=== PATIENT | male | born 1950 | race Asian ===

== ENCOUNTER 2024-12-29 14:45 | Inpatient (IN) | payer OTHER ==
[~2024-12-29] VITALS: Ht 170.2 cm; Wt 78.8 kg
[2024-12-29] MEDS ORDERED: IOHEXOL 350 MG/ML 100 ML VIAL ONE (14:51)
[2024-12-29 15:01] LABS: PLATELET COUNT (AUTO) 102 K/uL (150-450); RED BLOOD CELL COUNT(AUTO) 3.18 MIL/uL (4.50-5.90); RED CELL DISTRIBUTION WIDTH 14.5 % (11.5-14.5); WHITE BLOOD COUNT (AUTO) 4.5 K/uL (4.5-11.0)
[2024-12-29 15:09] LABS: CALCIUM, TOTAL 8.2 mg/dL (8.8-10.5); CREATININE 1.29 mg/dL (0.60-1.30); GLOMERULAR FILTR. RATE CALC 54.0 mL/min (>60); GLUCOSE,RANDOM 111.0 mg/dL (70-110); SODIUM SERUM 139.0 mmol/L (136-145); UREA NITROGEN, BLOOD 12.0 mg/dL (7-18)
[2024-12-29 15:13] LABS: ASPARTATE AMINOTRANSFERASE 38.0 U/L (15-37); CHOL/HDL RATIO 2.6 (4.2-7.3); LDL CHOL (CALC.) 60.0 mg/dL (0-130); TOTAL PROTEIN, SERUM 6.6 g/dL (6.4-8.2)
[2024-12-29] MEDS: TENECTEPLASE PER STROKE PROTOCOL CLINICAL ONE (15:13)
[2024-12-29 15:15] LABS: TROPONIN I-HIGH SENSITIVITY 16 ng/L (<76)
[2024-12-29] MEDS ORDERED: TENECTEPLASE 50 MG/10 ML KIT IVP ONE (15:15)
[2024-12-29] MEDS ORDERED: -PHARMACY NOTE- MISC SCH (15:15)
[2024-12-29] MEDS ORDERED: LABETALOL HCL 5 MG/ML 20 ML VIAL IVP PRN (15:15)
[2024-12-29] MEDS: TENECTEPLASE 50 MG/10 ML KIT IVP ONE (15:25)
[2024-12-29 15:28] LABS: RBC MORPHOLOGY COMMENT ABNORMAL RBC MORPH
[2024-12-29 15:36] LABS: GLUCOMETER DEV NAME(LOC) ERT.7; GLUCOSE,POINT OF CARE 115 MG/DL (70-110)
[2024-12-29] MEDS ORDERED: ONDANSETRON HCL 4 MG/2 ML VIAL IVP PRN (17:45)
[2024-12-29 20:07] VITALS: BP 154/95; PULSE 90; RESP 18; TEMP 99; O2SAT 96
[2024-12-29 21:24] LABS: TROPONIN I-HIGH SENSITIVITY 24 ng/L (<76)
[2024-12-29] MEDS: ETHYL ALCOHOL 62% ANTISEPTIC NASAL SANITIZER 0.6 ML AMPUL NASAL SCH (22:21)
[2024-12-29] MEDS: ATORVASTATIN CALCIUM 40 MG TABLET PO SCH (22:21)
[2024-12-29] MEDS: CHLORHEXIDINE GLUCONATE 2% TOWELETTE [2'S/6'S] TP SCH (22:21)
[2024-12-29] MEDS: DOCUSATE SODIUM 100 MG CAPSULE PO SCH (22:21)
[2024-12-29] MEDS: POTASSIUM CHLORIDE 20 MEQ ER TABLET PO PRN (22:29)
[2024-12-29] MEDS ORDERED: POTASSIUM CHL 10 MEQ/WATER 50 ML IV PRN (22:30)
[2024-12-29] MEDS ORDERED: SODIUM CHLORIDE 0.9% 250 ML IV ONE (23:23)
[2024-12-30] VITALS: BP 131/83; PULSE 94; RESP 19; TEMP 98.9; O2SAT 96
[2024-12-30] MEDS: PIPERACILLIN/TAZO 3.375 GM/D5W 50 ML IV SCH (00:14)
[2024-12-30 02:49] LABS: PLATELET COUNT (AUTO) 112 K/uL (150-450); RED BLOOD CELL COUNT(AUTO) 3.44 MIL/uL (4.50-5.90); RED CELL DISTRIBUTION WIDTH 14.4 % (11.5-14.5); WHITE BLOOD COUNT (AUTO) 7.4 K/uL (4.5-11.0)
[2024-12-30 02:56] LABS: CALCIUM, TOTAL 8.1 mg/dL (8.8-10.5); CREATININE 0.99 mg/dL (0.60-1.30); GLOMERULAR FILTR. RATE CALC > 60 mL/min (>60); GLUCOSE,RANDOM 90 mg/dL (70-110); SODIUM SERUM 140 mmol/L (136-145); UREA NITROGEN, BLOOD 12 mg/dL (7-18)
[2024-12-30 03:05] LABS: RBC MORPHOLOGY COMMENT ABNORMAL RBC MORPH
[2024-12-30 03:06] LABS: TROPONIN I-HIGH SENSITIVITY 22 ng/L (<76)
[2024-12-30 04:00] VITALS: BP 134/74; PULSE 83; PULSE 92; RESP 18; TEMP 98.8; O2SAT 98
[2024-12-30] MEDS ORDERED: MAGNESIUM SULFATE 4 GM/WATER 100 ML IV PRN ×2 (04:45→13:00)
[2024-12-30] MEDS ORDERED: MAGNESIUM OXIDE 400 MG TABLET PO PRN ×2 (04:45→13:00)
[2024-12-30] MEDS: SODIUM CHLORIDE 0.9% 1,000 ML IV SCH (04:58)
[2024-12-30] MEDS: MAGNESIUM SULFATE 2 GM/WATER 50 ML IV PRN (06:32)
[2024-12-30 08:00] VITALS: BP_SYST 119; BP_DIAS 64; BP_DIAS 79; PULSE 79; PULSE 91; RESP 21; RESP 24; TEMP 98.6; TEMP 98.7; O2SAT 98
[2024-12-30 12:00] VITALS: BP 119/64; PULSE 79; RESP 21; TEMP 98.7; O2SAT 98
[2024-12-30] MEDS ORDERED: MAGNESIUM SULFATE 2 GM/WATER 50 ML IV PRN (13:00)
[2024-12-30 16:00] VITALS: BP 128/60; PULSE 99; RESP 35; TEMP 98.9; O2SAT 97
[2024-12-30 20:00] VITALS: BP 161/91; PULSE 74; RESP 13; TEMP 99.7; O2SAT 98
[2024-12-30] MEDS: ASPIRIN 81 MG CHEWABLE TABLET PO SCH (20:13)
[2024-12-30] MEDS: CLOPIDOGREL BISULFATE 75 MG TABLET PO ONE (20:13)
[2024-12-30 20:17] LABS: CHOL/HDL RATIO 3.0 (4.2-7.3); LDL CHOL (CALC.) 65.0 mg/dL (0-130)
[2024-12-31] VITALS (7 sets, daily range): BP systolic 97–138; BP diastolic 55–78; PULSE 68–92; RESP 16–20; TEMP 98.3–99.9; O2SAT 96–99
[2024-12-31] MEDS: HEPARIN SODIUM,PORCINE 5,000 UNITS/ML VIAL SQ SCH (00:26)
[2024-12-31] MEDS ORDERED: SODIUM CHLORIDE 0.9% 250 ML IV ONE (04:05)
[2024-12-31 06:01] LABS: PLATELET COUNT (AUTO) 94 K/uL (150-450); RED BLOOD CELL COUNT(AUTO) 3.33 MIL/uL (4.50-5.90); RED CELL DISTRIBUTION WIDTH 14.5 % (11.5-14.5); WHITE BLOOD COUNT (AUTO) 6.1 K/uL (4.5-11.0)
[2024-12-31 07:04] LABS: CALCIUM, TOTAL 7.7 mg/dL (8.8-10.5); CREATININE 1.16 mg/dL (0.60-1.30); GLOMERULAR FILTR. RATE CALC > 60 mL/min (>60); GLUCOSE,RANDOM 99 mg/dL (70-110); SODIUM SERUM 142 mmol/L (136-145); TROPONIN I-HIGH SENSITIVITY 21 ng/L (<76); UREA NITROGEN, BLOOD 14 mg/dL (7-18)
[2024-12-31 07:07] LABS: RBC MORPHOLOGY COMMENT ABNORMAL RBC MORPH
[2024-12-31] MEDS: CLOPIDOGREL BISULFATE 75 MG TABLET PO SCH (12:20)
[2024-12-31] MEDS ORDERED: SODIUM CHLORIDE 0.9% 500 ML IV ONE (16:35)
[2025-01-01 04:36] VITALS: BP 139/92; PULSE 85; RESP 20; TEMP 99; O2SAT 98
[2025-01-01 07:58] VITALS: BP 141/73; PULSE 95; RESP 19; TEMP 98.8; O2SAT 97
[2025-01-01] MEDS: ACETAMINOPHEN 325 MG TABLET PO PRN (09:52)
[2025-01-01 11:50] VITALS: BP 138/73; PULSE 72; RESP 16; TEMP 98.2
[2025-01-01 18:10] VITALS: BP 138/76; PULSE 81; RESP 18; TEMP 98.4; O2SAT 99
[2025-01-02 04:00] VITALS: BP 139/77; PULSE 87; RESP 18; TEMP 97.9; O2SAT 98
[2025-01-02 06:42] LABS: CALCIUM, TOTAL 7.3 mg/dL (8.8-10.5); CREATININE 1.02 mg/dL (0.60-1.30); GLOMERULAR FILTR. RATE CALC > 60 mL/min (>60); GLUCOSE,RANDOM 84 mg/dL (70-110); SODIUM SERUM 139 mmol/L (136-145); UREA NITROGEN, BLOOD 11 mg/dL (7-18)
[2025-01-02 08:43] VITALS: BP 126/76; PULSE 68; RESP 18; TEMP 99.1; O2SAT 96
[2025-01-02 15:45] VITALS: BP 139/73; PULSE 86; RESP 18; TEMP 98.7; O2SAT 99
[2025-01-02 19:22] VITALS: BP 133/77; PULSE 87; RESP 18; TEMP 99.3; O2SAT 95
[2025-01-03 04:30] VITALS: BP 125/70; PULSE 74; RESP 18; TEMP 98.4; O2SAT 97
[2025-01-03 08:05] VITALS: BP 131/78; PULSE 87; RESP 19; TEMP 97.7; O2SAT 98
[2025-01-03] MEDS ORDERED: ASPI-1450 PO (13:17)
== END 2025-01-03 14:00 | DRG 62 ==
LOC: EMS 14:45 → EDH 17:35 → ICU 20:07 → 5S 12-31 13:40 → 6S 01-01 19:41
PROVIDERS: ADMIT Internal Medicine; ATTEND Internal Medicine
DX: I63.9 Cerebral infarction, unspecified (principal); G81.94 Hemiplegia, unspecified affecting left nondominant side; I48.19 Other persistent atrial fibrillation; I10 Essential (primary) hypertension; R05.9 Cough, unspecified; E83.42 Hypomagnesemia; D64.9 Anemia, unspecified; D69.6 Thrombocytopenia, unspecified; E87.6 Hypokalemia; F10.10 Alcohol abuse, uncomplicated; Y90.9 Presence of alcohol in blood, level not specified; F17.210 Nicotine dependence, cigarettes, uncomplicated; R29.720 NIHSS score 20; K74.60 Unspecified cirrhosis of liver; Z79.02 Long term (current) use of antithrombotics/antiplatelets; Z79.82 Long term (current) use of aspirin; Z79.899 Other long term (current) drug therapy
CPT/HCPCS: 70450; 70496; 70498; 70544; 70551; 71045; 80048; 80053; 80061; 82040; 82948; 82962; 83036; 83735; 84132; 84439; 84443; 84484; 85025; 85610; 85730; 86850; 86900; 86901; 87040; 87081; 92610; 92977; 93005; 93306; 93880; 97112; 97116; 97167; 97530; 97535; 99291; G0378; J1644; J2543; J3101; J3475; J3490; J7030; J7040; J7050; 36415-L1; 36415-TC